=== PATIENT | female | born 1970 | race Caucasian/White ===

== ENCOUNTER → 2016-06-24 | Outpatient (CLI) | payer BC ==
[~2016-06-24] MED LIST: HYDR1TAB PO; LISI20TA2; PROM25SU10 PR; SPIR50TA27
--- OUTSIDE RECORDS SUMMARY | 2016-06-24 08:12 | XMS REPORT | Continuity of Care Document ---
Author Author [facility] Organization [facility] Address Unknown Phone Unavailable Care Team Providers Care Wax Pattern Coater Name Role Phone Fay Astudillo PCP [phone] Source Comments Some departments are not documenting in the electronic medical record. If you do not see the information that you expected, contact Release of Information in the Health Information Management department at [phone] for further assistance in locating additional records.[facility] Active Allergies and Adverse Reactions Allergen Noted Date Severity Reactions Comments Nsaids (Non-Steroidal 09/06/2013 EDEMA Anti-Inflammatory Drug) Voltaren 02/26/2015 Low SEE COMMENTS Swelling on arms and hands Current Medications Prescription Sig. Disp. Refills Start End Date Status Date escitalopram (LEXAPRO) 10 Take 10 mg by mouth Active mg tablet daily. ALPRAZolam (XANAX) 0.25 Take 0.25 mg by mouth at Active mg tablet bedtime as needed. METFORMIN HCL (METFORMIN Take 500 mg by mouth Active PO) twice daily. metoprolol XL (TOPROL XL) Take 25 mg by mouth twice Active 25 mg tablet daily. lisinopril/hydrochlorothi Take by mouth daily. Active azide (ZESTORETIC) 20/12.5 mg tablet Halcinonide (HALOG) 0.1 % Apply to affected area 60 g 3 09/07/19 Active oint twice daily 14 mupirocin (BACTROBAN) 2 % Apply to affected area 22 g 1 09/17/19 Active topical ointment three times daily. to 14 infected areas nystatin 500,000 unit Take 500,000 Units by Active tablet mouth three times daily. Lactobacillus rhamnosus Take 1 Cap by mouth once. Active GG (LACTOBACILLUS RHAMNOSUS (GG)) 15 billion cell cpSP Glutamine (L-GLUTAMINE) Take 1 Cap by mouth Active 500 mg cap daily. liraglutide(+) (VICTOZA Inject 0.6 mg into Active 2-NIKHIL) 0.6 mg/0.1 mL (18 area(s) as directed mg/3 mL) pnij daily. other medication 1 Dose. Grapefruit seed Active extract. beclomethasone Apply 2 Sprays to each 2 Each 3 06/21/19 Active dipropionate (QNASL) 80 nostril as directed 16 mcg/actuation nasal spray daily. Active Problems Problem Noted Date Dermatitis 06/25/2015 Overview: She has longstanding dermatitis that has been evaluated by multiple providers including Dermatology but she has never been given an actual diagnosis by anyone. She has reportedly had 7 skin biopsies. The two we have to review have called it "spongiotic dermatitis" and "the changes are nonspecific and do not allow for futher subclassificiation." - Suggest that she follow-up with Dermatology - Discussed soak and seal method. Provided samples of Vanicream and Free & Clean products to trial. - Start Zyrtec 10 mg daily Shortness of breath 06/21/2015 Overview: She is a long-term smoker and does not have a prior history of asthma. Prior chest imaging reportedly was read as having emphysematous changes. Spirometry in clinic today with non-reversible obstruction. - She likely has COPD. She needs to have complete pulmonary function testing and she will talk with her PCP and have this done in her home town. - Discussed importance of smoking cessation. Allergic rhinoconjunctivitis 06/21/2015 Overview: She has perennial symptoms of rhinoconjunctivitis with summer exacerbation. Aeroallergen skin testing 06/21/15 showed sensitization to: tree/grass/weed pollen, dust mite, dog and mold. She has failed Nasonex and Flonase. - Aeroallegen avoidance measurers discussed and provided written instructions - Start Zyrtec 10 mg daily - Start QNASL 2 sp en daily - Start sinus rinses daily - Discussed the possibility of SCIT however she is on a beta-mari for apparent tachycardia. Myalgia 02/26/2015 Social History Tobacco Use Types Packs/Day Years Used Date Current Every Day Smoker 0.5 Smokeless Tobacco: Never Used Tobacco Cessation: Ready to Quit: No; Counseling Given: Yes Comments: Last Filed Vital Signs Vital Sign Reading Time Taken Blood Pressure 129/77 06/21/2015 2:38 PM ELECTRO MECHANICAL SOLAR TECHNICIAN Pulse 77 06/21/2015 2:38 PM ELECTRO MECHANICAL SOLAR TECHNICIAN Temperature 36.8 C (98.2 F) 06/21/2015 2:38 PM ELECTRO MECHANICAL SOLAR TECHNICIAN Respiratory Rate 16 06/21/2015 2:38 PM ELECTRO MECHANICAL SOLAR TECHNICIAN Height 1.664 m (5' 5.5") 06/21/2015 2:38 PM ELECTRO MECHANICAL SOLAR TECHNICIAN Weight 115.214 kg (254 lb) 06/21/2015 2:38 PM ELECTRO MECHANICAL SOLAR TECHNICIAN Body Mass Index 41.61 06/21/2015 2:38 PM ELECTRO MECHANICAL SOLAR TECHNICIAN Oxygen Saturation - - Plan of Care Health Maintenance Due Date Last Done Comments Physical (Comprehensive) 1976 Exam Pertussis Vaccine 1980 Tetanus Vaccine 1986 Cervical Cancer Screening 1990 Breast Cancer Screening 2009 Influenza Vaccine 01/31/2016 Results from Last 3 Months Not on file
--- NOTE | 2016-06-24 19:02 | Diagnostic Imaging Report ---
Digital mammogram bilateral screening. INDICATION: Skin lesion, right breast. The current study was also evaluated with a Computer Aided Detection (CAD) system. This study was compared to the prior exams of 06/27/15 and 03/05/15. At this time, the patient does note a recently ruptured sebaceous cyst in the 4 o'clock position of the right breast. FINDINGS: A marker was placed at the area of concern. There is no definite abnormality visualized in this area. Even so, I would recommend that ultrasound be performed for further study. The overall appearance of the breasts has not changed significantly otherwise. There are scattered fibroglandular densities in each breast which could obscure a lesion. There is no primary or secondary sign of malignancy noted. IMPRESSION: 1. There is no evidence of malignancy. 2. Ultrasound would be recommended for further evaluation of the recently ruptured sebaceous cyst in the right breast. ACR BI-RADS Category 0: Incomplete. (Needs additional imaging evaluation). Result letter will be mailed to the patient. Note: At least 10% of breast cancer is not imaged by mammography. Dictated by: Dictated on workstation # [id number]
--- NOTE | 2016-06-24 19:35 | Diagnostic Imaging Report ---
EXAM: Ultrasound of the right breast. INDICATION: Right breast lump. FINDINGS: By history, the patient has had multiple sebaceous cysts in the past. She recently lanced a small sebaceous cyst in the 4:00 o'clock position of the breast roughly 8 cm from the nipple. In this area, there is a small 1.1 x 0.2 x 1.2 cm hypoechoic area. I suspect that this is related to the recently ruptured sebaceous cyst. There is slightly increased vascularity in the soft tissues in this area but there is no mass or abscess visualized. The sebaceous cyst in the 10:00 o'clock position of the right breast seen on the previous right breast ultrasound exam of 07/30/15 is not evident on this study. There is no other abnormality visualized. IMPRESSION: 1. There is a small hypoechoic area in the region of the recently ruptured sebaceous cyst in the 4:00 o'clock position of the breast. There is slightly increased vascularity in this area and this does suggest mild inflammation. There is no abscess identified, however. Clinical followup is recommended. 2. There is no sign of malignancy. ACR category 1. ACR BI-RADS Category 1: Negative. Result letter will be mailed to the patient. Note: At least 10% of breast cancer is not imaged by mammography. Dictated by: Dictated on workstation # [id number]
== END ==
LOC: RAD 08:08
PROVIDERS: ATTEND Nurse Practitioner Family
DX: N60.81 Other benign mammary dysplasias of right breast (principal)

== ENCOUNTER → 2016-09-18 | Outpatient (CLI) | payer BC ==
--- NOTE | 2016-09-18 18:54 | Diagnostic Imaging Report ---
EXAMINATION: Right breast ultrasound. INDICATION: Followup skin-based lesion at 4:00 zone. COMPARISON: 06/24/16. FINDINGS: The skin-based lesion seen before measures 1.1 x 0.2 x 1.2 cm which is minimally less prominent compared to the prior exam. There is, however, less prominent vascularity seen with color Doppler around it. There is no fluid collection. No suspicious mass. IMPRESSION: Focal skin-based hypoechoic area at the 4:00 zone, 8 cm from the nipple. Minimally less prominent with less surrounding vascularity, may relate to a transient infection of the skin lesion. No suspicious mass or fluid collection. Clinical followup is recommended. ACR BI-RADS Category 2: Benign findings. Result letter will be mailed to the patient. Note: At least 10% of breast cancer is not imaged by mammography. Dictated by: Dictated on workstation # [id number]
== END ==
LOC: RAD 13:52
PROVIDERS: ATTEND Nurse Practitioner Family
DX: N64.89 Other specified disorders of breast (principal)

== ENCOUNTER → 2016-10-21 | Outpatient (RCR) | payer BC ==
--- OUTSIDE RECORDS SUMMARY | 2016-07-23 13:25 | XMS REPORT | Continuity of Care Document ---
Author Author [facility] Organization [facility] Address Unknown Phone Unavailable Care Team Providers Care Stable Manager Name Role Phone Fay Astudillo PCP [phone] Source Comments Some departments are not documenting in the electronic medical record. If you do not see the information that you expected, contact Release of Information in the Health Information Management department at [phone] for further assistance in locating additional records.[facility] Active Allergies and Adverse Reactions Allergen [...] Taken Blood Pressure 129/77 06/21/2015 2:38 PM CADDY PACKER Pulse 77 06/21/2015 2:38 PM CADDY PACKER Temperature 36.8 C (98.2 F) 06/21/2015 2:38 PM CADDY PACKER Respiratory Rate 16 06/21/2015 2:38 PM CADDY PACKER Height 1.664 m (5' 5.5") 06/21/2015 2:38 PM CADDY PACKER Weight 115.214 kg (254 lb) 06/21/2015 2:38 PM CADDY PACKER Body Mass Index 41.61 06/21/2015 2:38 PM CADDY PACKER Oxygen Saturation - - Plan of Care Health Maintenance Due Date Last Done Comments Physical (Comprehensive) 1976 Exam Pertussis Vaccine 1980 Tetanus Vaccine 1986 Cervical Cancer Screening 1990 Breast Cancer Screening 2009 Influenza Vaccine 01/31/2016 Results from Last 3 Months Not on file
== END | disposition home or self-care (01) ==
PROVIDERS: ATTEND Emergency Medicine
DX: Z47.89 Encounter for other orthopedic aftercare (principal); M79.642 Pain in left hand

== ENCOUNTER 2016-10-24 11:19 | Outpatient (RCR) | payer BC | END 2016-11-12 11:52 | disposition home or self-care (01) | PROVIDERS: ATTEND Emergency Medicine | DX: Z47.89 Encounter for other orthopedic aftercare (principal); M79.642 Pain in left hand ==

== ENCOUNTER → 2018-12-20 | Outpatient (CLI) | payer BC ==
--- NOTE | 2018-12-21 08:59 | Diagnostic Imaging Report ---
EXAMINATION: Digital mammogram INDICATION: Bilateral screening with 3D tomosynthesis and CAD This study was compared to the prior films of 06/24/2016, 06/27/2015 and 03/05/2015. At this time there are no current complaints. The breasts are predominantly fatty. When compared to the previous study there has been no significant change. There is no primary or secondary sign of malignancy noted. IMPRESSION: 1. There is no evidence of malignancy. ACR BI-RADS Category 1: Negative. Result letter will be mailed to the patient. Note: At least 10% of breast cancer is not imaged by mammography. Dictated by: Dictated on workstation # [id number]
== END ==
LOC: RAD 09:21
PROVIDERS: ATTEND Nurse Practitioner
DX: Z12.31 Encounter for screening mammogram for malignant neoplasm of breast (principal)
CPT/HCPCS: 77067

== ENCOUNTER → 2019-01-17 | Outpatient (CLI) | payer BC ==
--- NOTE | 2019-01-17 11:24 | Diagnostic Imaging Report ---
PROCEDURE: CT abdomen without contrast. TECHNIQUE: Multiple contiguous axial images were obtained through the abdomen without the use of intravenous contrast. Auto Exposure Controls were utilized during the CT exam to meet ALARA standards for radiation dose reduction. INDICATION: Followup right renal cyst. COMPARISON: Correlation is made with the prior CT from 11/26/2015. FINDINGS: The lung bases are clear. The liver again demonstrates generalized low density, consistent with hepatic steatosis. No discrete mass is detected. The gallbladder is unremarkable. No biliary ductal dilatation is seen. The pancreas and spleen are unremarkable. No adrenal mass is identified. The circumscribed low-density lesion in the posterior aspect of the mid right kidney appears stable at approximately 1.3 cm. This again is most suggestive of a cyst. No renal calculus or hydronephrosis is seen. The aorta is non-aneurysmal. The visualized small and large bowel loops are of normal caliber. There is no ascites. The bony structures are nonacute. IMPRESSION: 1. Hepatic steatosis. 2. Stable circumscribed low density lesion in the right kidney since the study of 3 years earlier, most suggestive of a cyst. Dictated by: Dictated on workstation # [id number]
== END ==
LOC: RAD 09:45
PROVIDERS: ATTEND Nurse Practitioner
DX: N28.1 Cyst of kidney, acquired (principal); K76.0 Fatty (change of) liver, not elsewhere classified
CPT/HCPCS: 74150

== ENCOUNTER 2019-08-11 14:20 | Outpatient (RCR) | payer BC | END 2019-10-02 | disposition home or self-care (01) | PROVIDERS: ATTEND Orthopaedic Surgery | DX: M54.12 Radiculopathy, cervical region (principal); M50.30 Other cervical disc degeneration, unspecified cervical region; M75.102 Unspecified rotator cuff tear or rupture of left shoulder, not specified as traumatic; M48.02 Spinal stenosis, cervical region; I10 Essential (primary) hypertension; K21.9 Gastro-esophageal reflux disease without esophagitis; R42 Dizziness and giddiness; J45.909 Unspecified asthma, uncomplicated; E11.9 Type 2 diabetes mellitus without complications; Z72.0 Tobacco use ==

== ENCOUNTER → 2020-08-24 | Outpatient (CLI) | payer BC, OTHER ==
--- NOTE | 2020-08-24 09:40 | Diagnostic Imaging Report ---
EXAM: Digital mammogram, bilateral screening COMPARISON: This study was compared to the prior exams of 12/20/2018, 06/24/2016, 06/27/2015 and 03/05/2015. At this time there are no current complaints. The current study was also evaluated with a Computer Aided Detection (CAD) system. FINDINGS: There is a mild amount of fibroglandular tissue present in both breasts, similar to the prior exam. No primary or secondary sign of malignancy is noted. IMPRESSION: There is no radiographic evidence for malignancy. ACR Category 1. ACR BI-RADS Category 1: Negative. Result letter will be mailed to the patient. Note: At least 10% of breast cancer is not imaged by mammography. Dictated by: Dictated on workstation # [id number]
== END ==
LOC: RAD 07:54
PROVIDERS: ATTEND Nurse Practitioner Family
DX: Z12.31 Encounter for screening mammogram for malignant neoplasm of breast (principal)
CPT/HCPCS: 77063; 77067

== ENCOUNTER 2020-10-07 23:08 | Emergency (ER) | payer SELFPAY ==
[~2020-10-07] VITALS: Ht 165 cm; Wt 113.0 kg
[2020-10-08] MEDS ORDERED: LIDOCAINE 2% VISCOUS 15 ML UDC PO ONE
[2020-10-08] MEDS ORDERED: viscous lidocaine TOP ×2 (00:08→00:10)
--- NOTE | 2020-10-08 00:09 | ED EENT ---
History of Present Illness General Chief Complaint: Dental Problems/Pain Stated Complaint: TOOTH PAIN;HIGH BP Nursing Triage Note: Patient states she had a filling that fell out quite some time ago. She began experiencing pain on thursday and was seen on thursday at the dentist office. She states she had a scaling done on the right side thursday and that she was advised she would need a root canal. She states she started taking amoxicillin on Thursday that she had at home and then on Thursday they extended her script for 10 days of amoxicillin and she was prescribed tramadol for pain. She states the tramadol is not improving the pain. She states she has also been trying ibuprofen and tylenol with no relief and rating pain 8/10. Source: patient Exam Limitations: no limitations History of Present Illness Date Seen by Provider: October 07, 2020 Time Seen by Provider: 23:33 Initial Comments Patient presents ER by private conveyance chief complaint for the past several days she has had progressively worsening pain and swelling in her right upper eye tooth. She started some amoxicillin on Thursday, 5 days ago. She went saw her dentist who gave her a prescription for 10 days of amoxicillin. She is also been using tramadol and Excedrin with modest relief of pain. Tonight however she is the pain is very severe and she is not tolerating it. She has some minor swelling of her face. Allergies and Home Medications Allergies Coded Allergies: No Known Drug Allergies (Unverified , 06/21/09) Home Medications Hydrocodone Bit/Acetaminophen 1 Each Tablet, 1-2 EACH PO QID PRN WORSE PAIN Prescribed by: VALERIO RAY on 06/21/09 0502 Promethazine Hcl 25 Mg Supp, 25 MG IN QID PRN VOMITING Prescribed by: VALERIO ARY on 06/21/09 0502 Patient Home Medication List Home Medication List Reviewed: Yes Review of Systems Review of Systems Constitutional: No chills, No diaphoresis Eyes: Denies Blindness, Denies Drainage Ears: Denies Dizziness, Denies Pain Nose: denies clots, denies congestion Mouth: denies clots, denies pain, denies swelling Throat: denies pain, denies swelling All Other Systems Reviewed Negative Unless Noted: Yes Past Jwihzkd-Npwzfg-Nunyct Hx Patient Social History Alcohol Use: Denies Use Smoking Status: Current Everyday Smoker Type Used: Cigarettes Recent Infectious Disease Expo: No Recent Hopitalizations: No Seasonal Allergies Seasonal Allergies: No Past Medical History Surgeries: No Respiratory: No Cardiac: Yes Hypertension Neurological: No Genitourinary: No Gastrointestinal: No Musculoskeletal: No Endocrine: Yes Diabetes, Non-Insulin dep HEENT: No Cancer: No Psychosocial: Yes Anxiety Integumentary: Yes Eczema Physical Exam Vital Signs Vital Signs - First Documented 10/07/20 23:21 Temp 36.1 Pulse 79 Resp 14 B/P (MAP) 184/103 (130) Pulse Ox 98 O2 Delivery Room Air Height, Weight, BMI Height: '" Weight: lbs. oz. kg; 41.00 BMI Method: General Appearance: WD/WN, mild distress Eyes: bilateral eye normal inspection, bilateral eye PERRL, bilateral eye EOMI Ears: bilateral ear auricle normal, bilateral ear canal normal, bilateral ear TM normal Nose: normal inspection; No active bleeding, No discharge Mouth/Throat: dental tenderness (Right upper maxillary dental pain without pointing or palpable abscess); No excessive drooling, No foreign body Neck: full range of motion, supple, normal inspection Cardiovascular: normal peripheral pulses, regular rate, rhythm Progress/Results/Core Measures Results/Orders My Orders Orders - RACHAEL DALE Lidocaine 2% Viscous 15 Ml (Xylocaine Vi (10/08/20 00:00) Vital Signs/I&O 10/07/20 23:21 Temp 36.1 Pulse 79 Resp 14 B/P (MAP) 184/103 (130) Pulse Ox 98 O2 Delivery Room Air Blood Pressure Mean: 130 Progress Progress Note : Time: 00:06 Progress Note Discussed nerve block and at this time were described to do topical viscous lidocaine. Continue the antibiotics. Follow-up with a dentist. Departure Impression Primary Impression: Dental abscess Disposition: 01 HOME, SELF-CARE Condition: Stable Departure-Patient Inst. Decision time for Depature: 00:06 Referrals: NO,LOCAL PHYSICIAN (PCP) Primary Care Physician JOSIAS GARZA APRN (Family) Primary Care Physician Patient Instructions: Dental Pain (DC) Add. Discharge Instructions: Ultimately the infection in your tooth will have to be taken care of surgically by having the tooth removed and the nerve root deadened throughout the root canal. The antibiotic should help bring down the inflammation, infection and pain so keep taking them as prescribed. Use your pain medicines. You could try naproxen 500 mg twice a day as necessary for pain. Tylenol 1000 mg every 8 hours necessary for pain. Topical creams such as Orajel or the viscous lidocaine as prescribed 5 cc applied directly to gauze held in place over the tooth every 6 hours as necessary for numbing the tooth. All discharge instructions reviewed with patient and/or family. Voiced understanding. Scripts [viscous lidocaine] 2% EACH No Conflict Check 5 ML TOP Q6H PRN for PAIN-BREAKTHROUGH for 3 Days, #100 ML 0 Refills Prov: RACHAEL DALE 10/08/20 ARCHAEL DALE October 08, 2020 00:09
[2020-10-08 00:22] VITALS: BP 150/100
== END 2020-10-08 00:23 | disposition home or self-care (01) ==
LOC: EDUNIT# 23:08 → ER 23:10
DX: K04.7 Periapical abscess without sinus (principal); I10 Essential (primary) hypertension; E11.9 Type 2 diabetes mellitus without complications; F17.210 Nicotine dependence, cigarettes, uncomplicated
CPT/HCPCS: 99282

== ENCOUNTER → 2021-10-03 | Outpatient (CLI) | payer BC ==
[~2021-10-03] MED LIST changes: +viscous lidocaine TOP
--- NOTE | 2021-10-03 14:12 | Diagnostic Imaging Report ---
Indication: Routine screening. Comparison is made with prior mammogram from 08/24/2020 and 12/20/2018. 2-D and 3-D bilateral screening mammography was performed with CAD. CAD is utilized. The current study was also evaluated with a Computer Aided Detection (CAD) system. Scattered fibroglandular densities are identified bilaterally. The parenchymal pattern is stable. No mass or malignant-appearing microcalcifications are seen. Axillae are unremarkable. IMPRESSION: BI-RADS Category 1 No mammographic features suspicious for malignancy are identified. ACR BI-RADS Category 1: Negative. Result letter will be mailed to the patient. Note: At least 10% of breast cancer is not imaged by mammography. Dictated by: Dictated on workstation # [id number]
== END ==
LOC: RAD 10:30
PROVIDERS: ATTEND Nurse Practitioner
DX: Z12.31 Encounter for screening mammogram for malignant neoplasm of breast (principal)
CPT/HCPCS: 77063; 77067

== ENCOUNTER → 2022-04-01 | Outpatient (CLI) | payer BC ==
--- NOTE | 2022-04-01 18:21 | Diagnostic Imaging Report ---
INDICATION: Left wrist pain, decreased range of motion. Swelling. EXAMINATION: Left wrist 04/01/2022. FINDINGS: 3 views of the wrist. There is soft tissue swelling about the wrist. Narrowing and spurring at the 1st carpometacarpal joint consistent with osteoarthritic changes. No acute fractures or dislocations appreciated. IMPRESSION: 1. Degenerative findings with no acute osseous abnormality. Dictated by: Dictated on workstation # [id number]
== END ==
LOC: RAD 14:51
PROVIDERS: ATTEND Nurse Practitioner Family
DX: M19.032 Primary osteoarthritis, left wrist (principal)
CPT/HCPCS: 73110

== ENCOUNTER → 2022-10-06 | Outpatient (CLI) | payer BC ==
--- NOTE | 2022-10-06 09:59 | Diagnostic Imaging Report ---
INDICATION: Bilateral 3-D screening mammogram COMPARISON: 10/03/2021, 08/24/2020 There is mild breast parenchymal density bilaterally. No dominant mass or suspicious calcifications identified. Overall, no adverse change. IMPRESSION: Category 1 negative mammograms. Physical examination and annual mammographic followup are recommended. ACR BI-RADS Category 1: Negative. Result letter will be mailed to the patient. Note: At least 10% of breast cancer is not imaged by mammography. Dictated by: Dictated on workstation # [id number]
== END ==
LOC: RAD 07:35
PROVIDERS: ATTEND Nurse Practitioner
DX: Z12.31 Encounter for screening mammogram for malignant neoplasm of breast (principal)
CPT/HCPCS: 77063; 77067

== ENCOUNTER → 2023-03-13 | Outpatient (CLI) | payer BC ==
[~2023-03-13] MED LIST changes: +GADOTERATE 0.5 MMOL/ML (CLARISCAN) 20 ML VIAL IV ONE
--- NOTE | 2023-03-13 11:10 | Diagnostic Imaging Report ---
EXAMINATION: MRI of the pelvis without and with contrast. COMPARISON: None HISTORY: Ovarian lesion evaluation, uterine fibroids TECHNIQUE: Multiplanar, multisequence MRI of the pelvis was performed before and after the intravenous administration of IV contrast. FINDINGS: The uterus is anteverted and anteflexed measuring 3.3 x 5.0 x 5.7 cm. The endometrium is thin and homogeneous. The junctional zone is normal. There is a 1.3 cm submucosal uterine fibroid within the posterior fundus. There is an adjacent exophytic subserosal uterine fibroid measuring 1.4 cm. Normal low signal cervical stroma. The vaginal canal is unremarkable as visualized. The ovaries demonstrate multiple unilocular, T2 hyperintense cysts without suspicious solid or enhancing component. The largest on the right measures 3.0 cm. The largest on the left measures 3.1 cm. The urinary bladder is normal. IMPRESSION: 1. Simple appearing cysts within both ovaries. 2. Uterine fibroids measuring up to 1.4 cm. Dictated by: Dictated on workstation # [id number]
== END ==
LOC: RAD 08:26
PROVIDERS: ATTEND Family Medicine
DX: N83.202 Unspecified ovarian cyst, left side (principal); N83.201 Unspecified ovarian cyst, right side; D25.9 Leiomyoma of uterus, unspecified
CPT/HCPCS: 72197